=== PATIENT | female | born 1965 | race Caucasian/White ===

== ENCOUNTER 2017-09-20 10:03 | Day surgery (SDC) | payer OTHER, MEDICAID ==
[2017-09-20 12:57] LABS: ANION GAP 16 (8-16); CARBON DIOXIDE 24 mmol/L (21-31); CHLORIDE 109 mmol/L (97-110); GLUCOSE 88 mg/dl (70-220)
[2017-09-20 12:59] LABS: BLOOD UREA NITROGEN 13 mg/dl (7-20); CALCIUM 9.3 mg/dl (8.4-10.2); CREATININE 0.58 mg/dl (0.44-1.00); POTASSIUM 4.3 mmol/L (3.5-5.1); SODIUM 145 mmol/L (135-144)
[2017-09-20] MEDS ORDERED: FENTAnyl 50 MCG/ML VIAL (14:50)
[2017-09-20] MEDS ORDERED: ONDANSETRON 4 MG INJ (14:50)
[2017-09-20] MEDS ORDERED: CEFAZOLIN 1 GM INJ (14:50)
[2017-09-20] MEDS ORDERED: ROCURONIUM 50 MG INJ (14:50)
[2017-09-20] MEDS ORDERED: MIDAZOLAM 1 MG/ML 2 ML INJ (14:50)
[2017-09-20] MEDS ORDERED: GLYCOPYRROLATE 0.4 MG INJ (14:50)
[2017-09-20] MEDS ORDERED: NEOSTIGMINE 3 MG/3 ML SYRINGE (14:50)
[2017-09-20] MEDS ORDERED: PROPOFOL 20 ML (14:50)
[2017-09-20] MEDS ORDERED: DEXAMETHASONE 4 MG/ML 1 ML INJ (14:51)
[2017-09-20] MEDS: LIDOCAINE 1%/EPI 30 ML INJ (15:05)
[2017-09-20] MEDS: BACITRACIN 0.9 GM OINT (15:25)
[2017-09-20] MEDS ORDERED: IPRATROPIUM (NEB) 0.5 MG/2.5 ML AMP HHN (15:30)
[2017-09-20] MEDS ORDERED: LABETALOL HCL 20MG INJ IV (15:30)
[2017-09-20] MEDS ORDERED: MIDAZOLAM 1 MG/ML 2 ML INJ IV (15:30)
[2017-09-20] MEDS ORDERED: FENTAnyl 50 MCG/ML VIAL IV ×3 (15:30)
[2017-09-20] MEDS ORDERED: EPHEDrine SULFATE 50 MG/5 ML SYG IV (15:30)
[2017-09-20] MEDS ORDERED: MEPERIDINE 25 MG INJ IV (15:30)
[2017-09-20] MEDS ORDERED: ONDANSETRON 4 MG INJ IV (15:30)
[2017-09-20] MEDS ORDERED: DIPHENHYDRAMINE 50 MG INJ IV (15:30)
[2017-09-20] MEDS ORDERED: OXYCODONE/ACETAMINOPHEN (5/325) TAB PO (15:30)
[2017-09-20] MEDS ORDERED: HYDROmorphONE (0.2 MG/ML) 10ML SYG IV ×3 (15:30)
[2017-09-20] MEDS ORDERED: TRIMETHOBENZAMIDE 100 MG/ML VIAL IM (15:30)
[2017-09-20] MEDS ORDERED: ALBUTEROL 0.083% (NEB) 2.5 MG/3 ML AMP HHN (15:30)
[2017-09-20] MEDS: hydrALAzine 20 MG INJ IV (15:57)
[2017-09-20] MEDS: OXYCODONE/ACETAMINOPHEN (5/325) TAB PO (16:46)
== END 2017-09-20 17:42 | disposition home or self-care (01) ==
LOC: SDS 10:03
DX: D18.09 Hemangioma of other sites (principal); K13.0 Diseases of lips
CPT/HCPCS: 11442; 80048; 84703; 88304; 88312; 93005